=== PATIENT | male | born 1955 | race Caucasian/White ===

== ENCOUNTER 2018-01-23 05:23 | Inpatient (IN) | payer MEDICAID ==
[~2018-01-23] VITALS: Ht 185.4 cm; Wt 70.1 kg
[2018-01-23] VITALS (14 sets, daily range): BP systolic 105–164; BP diastolic 45–92
[~2018-01-23 05:23] MED LIST: CLON-527 PO; DOCU-28 PO; OXYC-658 PO; PANT40SU2 PO; PROP10TA10 PO; SPIR25TA3 PO; SUCR1TAB PO
[2018-01-23] MEDS ORDERED: normal saline 1000ML IV soln IVB ONE (05:40)
[2018-01-23] MEDS ORDERED: LORazepam 2 mg/ml vial IV ONE (05:40)
[2018-01-23] MEDS ORDERED: propofol 1000mg/100ml bottle 100 ML IV ONE ×2 (05:43→05:45)
[2018-01-23] MEDS ORDERED: rocuronium 10mg/ml inj IV ONE (05:45)
[2018-01-23] MEDS ORDERED: etomidate 2mg/ml inj. IV ONE (05:45)
[2018-01-23] MEDS ORDERED: MIDAZolam 5mg/ml 2ml vial IV ONE (05:45)
[2018-01-23] MEDS ORDERED: midazolam 2 mg/2 ml injection ONE (05:49)
[2018-01-23 05:53] LABS: BASOPHILS # (AUTO) 0.1 X10'3 (0-0.2); BASOPHILS % (AUTO) 0.5 % (0-1); EOSINOPHILS # (AUTO) 0.3 X10'3 (0-0.9); EOSINOPHILS % (AUTO) 2.2 % (0-6); HEMATOCRIT 33.6 % (42.0-52.0); HEMOGLOBIN 11.3 g/dl (14.0-17.9); LYMPHOCYTES # (AUTO) 2.9 X10'3 (1.1-4.8); LYMPHOCYTES % (AUTO) 25.5 % (21-51); MEAN CORPUSCULAR HEMOGLOBIN 30.2 PG (27.0-31.0); MEAN CORPUSCULAR HGB CONC 33.7 % (33.0-36.5); MEAN CORPUSCULAR VOLUME 89.5 FL (78-98); MEAN PLATELET VOLUME 8.4 FL (7.4-10.4); MONOCYTES # (AUTO) 0.7 X10'3 (0-0.9); MONOCYTES % (AUTO) 6.1 % (2-12); NEUTROPHILS # (AUTO) 7.5 X10'3 (1.8-7.7); NEUTROPHILS % (AUTO) 65.7 % (42-75); PLATELET COUNT 192 X10'3 (140-440); RED BLOOD COUNT 3.75 X10'6 (4.70-6.10); RED CELL DISTRIBUTION WIDTH 16.6 % (11.5-14.5); WHITE BLOOD COUNT 11.4 X10'3 (4.5-11.0)
[2018-01-23 06:06] LABS: ABG BASE EXCESS -5.5 mmol/L (-2.0-3.0); ABG HCO3 19.4 mmol/L (22.0-26.0); ABG OXYGEN SATURATION 99.2 % (95-98); ABG PCO2 (T) 33.2 mmHg (35.0-48.0); ABG PH (T) 7.377 (7.350-7.450); ABG PO2 (T) 220.5 mmHg (83-108); FCOHb 1.3 % (0.5-1.5); FMetHb 0.3 % (0.3-1.12); FO2Hb 97.6 % (94-100); PATIENT TEMPERATURE 35.5; PEEP 5 cm H2O; RESPIRATORY RATE 12 b/min; RESPIRATORY RATE (OBSERVED) 12 b/min; TIDAL VOLUME 500 mL; TOTAL HEMOGLOBIN 11.5 G/dl (14.0-18.0)
[2018-01-23 06:11] LABS: CLARITY,URINE CLEAR (Clear); COLOR,URINE YELLOW (Yellow); GLUCOSE, URINE NEGATIVE (Neg); KETONES,URINE TRACE mg/dl (Neg); LEUKOCYTE ESTERASE ,URINE NEGATIVE (Neg); NITRITES, URINE NEGATIVE (Neg); OCCULT BLOOD,URINE NEGATIVE (Neg); PH,URINE 7.5 (4.8-8.0); PROTEIN,URINE NEGATIVE (Neg)
[2018-01-23 06:13] LABS: ALANINE AMINOTRANSFERASE 121 U/L (12-78); ALBUMIN 2.8 G/DL (3.4-5.0); ALBUMIN/GLOBULIN RATIO 0.5 (1.1-1.5); ALKALINE PHOSPHATASE 198 IU/L (46-116); ANION GAP 20 (8-16); ASPARTATE AMINO TRANSFERASE 136 U/L (10-37); BILIRUBIN,TOTAL 1.6 MG/DL (0.1-1.0); BLOOD UREA NITROGEN 20 MG/DL (7-18); BUN/CREATININE RATIO 19.8 (5.4-32.0); CHLORIDE 108 MMOL/L (99-107); CREATININE 1.01 MG/DL (0.60-1.10); POTASSIUM 5.1 MMOL/L (3.5-5.1); SODIUM 143 MMOL/L (135-145); TOTAL CARBON DIOXIDE 15.4 MMOL/L (24-32); TOTAL PROTEIN 8.3 G/DL (6.4-8.2); eGFR 74 ML/MIN
[2018-01-23 06:14] LABS: GLUCOSE 145 MG/DL (70-104); INR 1.2 INR; PARTIAL THROMBOPLASTIN TIME 29 SECONDS (22-32); PROTHROMBIN TIME 12.6 SECONDS (9.0-12.0)
[2018-01-23 06:17] LABS: URINE AMPHETAMINE SCREEN POSITIVE (Neg); URINE BARBITUATE SCREEN NEGATIVE (Neg); URINE BENZODIAZEPINES SCREEN NEGATIVE (Neg); URINE CANNABINOID SCREEN POSITIVE (Neg); URINE COCAINE SCREEN NEGATIVE (Neg); URINE METHADONE SCREEN NEGATIVE (Neg); URINE OPIATE SCREEN POSITIVE (Neg); URINE PHENCYCLIDINE SCREEN NEGATIVE (Neg)
[2018-01-23 06:18] LABS: OSMOLALITY 306 MOSM/K (280-300)
[2018-01-23 06:20] LABS: UA COLLECTION TYPE STRAIGHT CATH
[2018-01-23 06:25] LABS: LACTIC SEPSIS 9.1 MMOL/L (0.4-2.0)
[2018-01-23 06:26] LABS: CKMB RELATIVE INDEX 1.9 RATIO (0-2.5); CREATINE KINASE 198 U/L (39-308); ETHANOL < 0.010 GM/DL (0.0-0.010); MAGNESIUM 1.9 MG/DL (1.5-2.4); PHOSPHORUS 2.8 MG/DL (2.3-4.5)
[2018-01-23 06:30] LABS: ACETAMINOPHEN < 2.0 UG/ML (10-30)
[2018-01-23] MEDS ORDERED: ZOLP5TAB8 (07:00)
[2018-01-23] MEDS: pantoprazole 40 MG vial IV SCH (08:00)
[2018-01-23] MEDS ORDERED: albuterol 2.5 MG/3 ML nebule NEB PRN (08:20)
[2018-01-23] MEDS ORDERED: metoclopramide 5 mg/ml inj IV PRN (08:20)
[2018-01-23] MEDS ORDERED: lactulose 20gm/30ml cup RC ONE (08:40)
[2018-01-23] MEDS ORDERED: fentaNYL in normal saline/PF 1,000mcg/100ml bag IV PRN (09:30)
[2018-01-23] MEDS: [UNRECOGNIZED DRUG - OTHER] IV PRN (10:55)
[2018-01-23] MEDS: midazolam 100mg in NS 100ml 100 ML IV PRN ×2 (10:56→21:59)
[2018-01-23] MEDS: ipratropium/albuterol 3ml nebule NEB SCH ×4 (11:44→23:34)
[2018-01-23] MEDS ORDERED: lactulose 20gm/30ml cup NG ONE (11:52)
[2018-01-23] MEDS: lactulose 20gm/30ml cup NG SCH ×2 (13:46→19:53)
[2018-01-23] MEDS ORDERED: lactulose 20gm/30ml cup NG SCH (14:00)
[2018-01-23] MEDS ORDERED: pantoprazole 40 MG vial IV ONE (18:50)
[2018-01-24] VITALS (24 sets, daily range): BP systolic 112–173; BP diastolic 50–80
[2018-01-24] MEDS: normal saline 1000ml 1,000 ML IV SCH ×3 (01:05→22:43)
[2018-01-24] MEDS: lactulose 20gm/30ml cup NG SCH ×4 (01:26→20:25)
[2018-01-24] MEDS: ipratropium/albuterol 3ml nebule NEB SCH ×6 (03:00→23:15)
[2018-01-24 04:55] LABS: ABG BASE EXCESS -1.7 mmol/L (-2.0-3.0); ABG OXYGEN SATURATION 97.9 % (95-98); ABG PCO2 (T) 29.5 mmHg (35.0-48.0); ABG PH (T) 7.471 (7.350-7.450); ABG PO2 (T) 109.4 mmHg (83-108); FCOHb 0.3 % (0.5-1.5); FMetHb 0.3 % (0.3-1.12); FO2Hb 97.3 % (94-100); MINUTE VOLUME 12 L/min; PATIENT TEMPERATURE 37.4; PEEP 5 cm H2O; RESPIRATORY RATE 20 b/min; RESPIRATORY RATE (OBSERVED) 22 b/min; TIDAL VOLUME 500 mL; TOTAL HEMOGLOBIN 10.9 G/dl (14.0-18.0)
[2018-01-24 07:09] LABS: INR 1.3 INR; PROTHROMBIN TIME 13.3 SECONDS (9.0-12.0)
[2018-01-24 07:16] LABS: ALANINE AMINOTRANSFERASE 95 U/L (12-78); ALBUMIN 2.3 G/DL (3.4-5.0); ALBUMIN/GLOBULIN RATIO 0.5 (1.1-1.5); ALKALINE PHOSPHATASE 164 IU/L (46-116); ANION GAP 12 (8-16); ASPARTATE AMINO TRANSFERASE 89 U/L (10-37); BILIRUBIN,TOTAL 1.9 MG/DL (0.1-1.0); BLOOD UREA NITROGEN 30 MG/DL (7-18); CALCIUM 8.1 MG/DL (8.5-10.1); CHLORIDE 111 MMOL/L (99-107); CREATININE 0.91 MG/DL (0.60-1.10); POTASSIUM 3.8 MMOL/L (3.5-5.1); SODIUM 145 MMOL/L (135-145); TOTAL CARBON DIOXIDE 22.1 MMOL/L (24-32); eGFR 84 ML/MIN
[2018-01-24 07:18] LABS: GLUCOSE 161 MG/DL (70-104)
[2018-01-24] MEDS: pantoprazole 40 MG vial IV SCH (08:13)
[2018-01-24 09:50] LABS: BASOPHILS % (AUTO) 0.1 % (0-1); EOSINOPHILS # (AUTO) 0.2 X10'3 (0-0.9); EOSINOPHILS % (AUTO) 1.3 % (0-6); HEMATOCRIT 30.1 % (42.0-52.0); HEMOGLOBIN 10.1 g/dl (14.0-17.9); LYMPHOCYTES # (AUTO) 0.9 X10'3 (1.1-4.8); LYMPHOCYTES % (AUTO) 5.2 % (21-51); MEAN CORPUSCULAR HEMOGLOBIN 29.9 PG (27.0-31.0); MEAN CORPUSCULAR HGB CONC 33.5 % (33.0-36.5); MEAN CORPUSCULAR VOLUME 89.4 FL (78-98); MEAN PLATELET VOLUME 8.7 FL (7.4-10.4); MONOCYTES % (AUTO) 5.9 % (2-12); NEUTROPHILS # (AUTO) 14.5 X10'3 (1.8-7.7); NEUTROPHILS % (AUTO) 87.5 % (42-75); RED BLOOD COUNT 3.37 X10'6 (4.70-6.10); RED CELL DISTRIBUTION WIDTH 17.4 % (11.5-14.5); WHITE BLOOD COUNT 16.6 X10'3 (4.5-11.0)
[2018-01-24 09:52] LABS: PLATELET COUNT 106 X10'3 (140-440)
[2018-01-24] MEDS: sucralfate 1 gm tablet PO SCH ×3 (13:00→20:26)
[2018-01-24] MEDS: mineral oil/petrolatum ophthal oint EACHEYE SCH ×2 (14:00→20:25)
[2018-01-24] MEDS: docusate sod 100mg capsule PO SCH (20:00)
[2018-01-24] MEDS: [UNRECOGNIZED DRUG - OTHER] IV PRN (20:05)
[2018-01-24] MEDS: propranolol 10mg tablet PO SCH (20:26)
[2018-01-24] MEDS: spironolactone 25 MG tablet PO SCH (20:26)
[2018-01-24] MEDS ORDERED: normal saline 250ml IV soln 250 ML IV ONE (21:55)
[2018-01-24] MEDS: midazolam 100mg in NS 100ml 100 ML IV PRN (23:05)
[2018-01-25] VITALS (23 sets, daily range): BP systolic 125–170; BP diastolic 52–104
[2018-01-25] MEDS: mineral oil/petrolatum ophthal oint EACHEYE SCH ×4 (03:01→20:32)
[2018-01-25] MEDS: lactulose 20gm/30ml cup NG SCH ×2 (03:05→08:13)
[2018-01-25] MEDS: normal saline 1000ml 1,000 ML IV SCH ×3 (03:07→22:18)
[2018-01-25] MEDS: ipratropium/albuterol 3ml nebule NEB SCH ×6 (03:30→22:59)
[2018-01-25 04:40] LABS: ABG BASE EXCESS -1.8 mmol/L (-2.0-3.0); ABG HCO3 21.4 mmol/L (22.0-26.0); ABG OXYGEN SATURATION 96.9 % (95-98); ABG PCO2 (T) 30.3 mmHg (35.0-48.0); ABG PH (T) 7.465 (7.350-7.450); FMetHb 0.3 % (0.3-1.12); FO2Hb 96.6 % (94-100); MINUTE VOLUME 8 L/min; PATIENT TEMPERATURE 36.8; PEEP 5 cm H2O; RESPIRATORY RATE (OBSERVED) 10 b/min; TOTAL HEMOGLOBIN 9.4 G/dl (14.0-18.0)
[2018-01-25 05:14] LABS: BASOPHILS % (AUTO) 0.1 % (0-1); EOSINOPHILS # (AUTO) 0.2 X10'3 (0-0.9); EOSINOPHILS % (AUTO) 1.8 % (0-6); HEMATOCRIT 26.4 % (42.0-52.0); HEMOGLOBIN 8.8 g/dl (14.0-17.9); LYMPHOCYTES # (AUTO) 1.1 X10'3 (1.1-4.8); MEAN CORPUSCULAR HEMOGLOBIN 30.1 PG (27.0-31.0); MEAN CORPUSCULAR HGB CONC 33.4 % (33.0-36.5); MEAN PLATELET VOLUME 9.2 FL (7.4-10.4); MONOCYTES # (AUTO) 0.8 X10'3 (0-0.9); MONOCYTES % (AUTO) 6.3 % (2-12); NEUTROPHILS % (AUTO) 82.8 % (42-75); PLATELET COUNT 79 X10'3 (140-440); RED BLOOD COUNT 2.94 X10'6 (4.70-6.10); RED CELL DISTRIBUTION WIDTH 17.6 % (11.5-14.5)
[2018-01-25 05:34] LABS: INR 1.3 INR; PROTHROMBIN TIME 13.4 SECONDS (9.0-12.0)
[2018-01-25 06:04] LABS: ALANINE AMINOTRANSFERASE 78 U/L (12-78); ALBUMIN 2.2 G/DL (3.4-5.0); ALBUMIN/GLOBULIN RATIO 0.5 (1.1-1.5); ALKALINE PHOSPHATASE 138 IU/L (46-116); ANION GAP 8 (8-16); ASPARTATE AMINO TRANSFERASE 60 U/L (10-37); BILIRUBIN,TOTAL 1.7 MG/DL (0.1-1.0); BLOOD UREA NITROGEN 36 MG/DL (7-18); BUN/CREATININE RATIO 41.4 (5.4-32.0); CALCIUM 8.2 MG/DL (8.5-10.1); CHLORIDE 116 MMOL/L (99-107); CREATININE 0.87 MG/DL (0.60-1.10); GLUCOSE 130 MG/DL (70-104); POTASSIUM 3.5 MMOL/L (3.5-5.1); SODIUM 147 MMOL/L (135-145); TOTAL CARBON DIOXIDE 23.3 MMOL/L (24-32); TOTAL PROTEIN 6.6 G/DL (6.4-8.2); eGFR 88 ML/MIN
[2018-01-25] MEDS: docusate sod 100mg capsule PO SCH ×2 (08:00→20:00)
[2018-01-25] MEDS: pantoprazole 40 MG vial IV SCH (08:07)
[2018-01-25] MEDS: propranolol 10mg tablet PO SCH ×2 (08:12→20:32)
[2018-01-25] MEDS: sucralfate 1 gm tablet PO SCH ×4 (08:12→20:32)
[2018-01-25] MEDS: spironolactone 25 MG tablet PO SCH ×2 (08:12→20:32)
[2018-01-25] MEDS: dexmedetomidin/NS 400mcg/100ml 100 ML IV SCH (10:29)
[2018-01-25 11:30] LABS: % IRON SATURATION 31 % (11-46); IRON 89 UG/DL (53-167); TOTAL IRON BINDING CAPACITY 288 UG/DL (259-388)
[2018-01-25 11:36] LABS: FERRITIN 50 NG/ML (26-388)
[2018-01-25 12:11] LABS: OCCULT BLOOD STOOL NEGATIVE (Neg)
[2018-01-25] MEDS: midazolam 100mg in NS 100ml 100 ML IV PRN (21:09)
[2018-01-25] MEDS ORDERED: dexmedetomidine 200mcg/2ml inj. IV ONE (22:56)
[2018-01-26] VITALS (23 sets, daily range): BP systolic 113–154; BP diastolic 53–78
[2018-01-26] MEDS: mineral oil/petrolatum ophthal oint EACHEYE SCH ×4 (02:42→20:00)
[2018-01-26] MEDS ORDERED: dexmedetomidine 200mcg/2ml inj. IV ONE (02:54)
[2018-01-26] MEDS: ipratropium/albuterol 3ml nebule NEB SCH ×4 (03:21→14:25)
[2018-01-26 03:41] LABS: ABG BASE EXCESS -3.9 mmol/L (-2.0-3.0); ABG HCO3 19.7 mmol/L (22.0-26.0); ABG OXYGEN SATURATION 96.8 % (95-98); ABG PCO2 (T) 29.1 mmHg (35.0-48.0); ABG PH (T) 7.445 (7.350-7.450); ABG PO2 (T) 82.6 mmHg (83-108); ALLEN'S TEST Positive; FCOHb 0.3 % (0.5-1.5); FMetHb 0.1 % (0.3-1.12); FO2Hb 96.4 % (94-100); MINUTE VOLUME 7 L/min; PATIENT TEMPERATURE 35.9; PEEP 5 cm H2O; RESPIRATORY RATE (OBSERVED) 10 b/min; TOTAL HEMOGLOBIN 9.2 G/dl (14.0-18.0)
[2018-01-26 04:37] LABS: BASOPHILS % (AUTO) 0.1 % (0-1); EOSINOPHILS # (AUTO) 0.1 X10'3 (0-0.9); EOSINOPHILS % (AUTO) 1.4 % (0-6); HEMATOCRIT 24.7 % (42.0-52.0); HEMOGLOBIN 8.3 g/dl (14.0-17.9); LYMPHOCYTES # (AUTO) 0.8 X10'3 (1.1-4.8); MEAN CORPUSCULAR HEMOGLOBIN 30.1 PG (27.0-31.0); MEAN CORPUSCULAR HGB CONC 33.5 % (33.0-36.5); MEAN CORPUSCULAR VOLUME 89.9 FL (78-98); MONOCYTES # (AUTO) 0.4 X10'3 (0-0.9); MONOCYTES % (AUTO) 5.2 % (2-12); NEUTROPHILS # (AUTO) 5.8 X10'3 (1.8-7.7); NEUTROPHILS % (AUTO) 82.3 % (42-75); PLATELET COUNT 64 X10'3 (140-440); RED BLOOD COUNT 2.75 X10'6 (4.70-6.10); RED CELL DISTRIBUTION WIDTH 17.3 % (11.5-14.5); WHITE BLOOD COUNT 7.1 X10'3 (4.5-11.0)
[2018-01-26 04:47] LABS: INR 1.3 INR; PROTHROMBIN TIME 13.3 SECONDS (9.0-12.0)
[2018-01-26 04:51] LABS: ALANINE AMINOTRANSFERASE 64 U/L (12-78); ALBUMIN 1.9 G/DL (3.4-5.0); ALBUMIN/GLOBULIN RATIO 0.5 (1.1-1.5); ALKALINE PHOSPHATASE 115 IU/L (46-116); ANION GAP 6 (8-16); ASPARTATE AMINO TRANSFERASE 46 U/L (10-37); BILIRUBIN,TOTAL 1.2 MG/DL (0.1-1.0); BLOOD UREA NITROGEN 40 MG/DL (7-18); BUN/CREATININE RATIO 51.9 (5.4-32.0); CALCIUM 8.2 MG/DL (8.5-10.1); CHLORIDE 118 MMOL/L (99-107); CREATININE 0.77 MG/DL (0.60-1.10); POTASSIUM 3.6 MMOL/L (3.5-5.1); SODIUM 147 MMOL/L (135-145); TOTAL CARBON DIOXIDE 23.1 MMOL/L (24-32); eGFR > 90 ML/MIN
[2018-01-26 05:00] LABS: GLUCOSE 127 MG/DL (70-104)
[2018-01-26] MEDS: propranolol 10mg tablet PO SCH ×2 (07:38→20:41)
[2018-01-26] MEDS: docusate sod 100mg capsule PO SCH ×2 (07:38→20:00)
[2018-01-26] MEDS: lactulose 20gm/30ml cup NG SCH (07:39)
[2018-01-26] MEDS: sucralfate 1 gm tablet PO SCH ×4 (07:40→20:41)
[2018-01-26] MEDS: spironolactone 25 MG tablet PO SCH ×2 (07:40→20:41)
[2018-01-26] MEDS: pantoprazole 40 MG vial IV SCH (07:40)
[2018-01-26] MEDS: normal saline 1000ml 1,000 ML IV SCH (13:53)
[2018-01-26] MEDS: dexmedetomidin/NS 400mcg/100ml 100 ML IV SCH (15:58)
[2018-01-26] MEDS ORDERED: LORazepam 2 mg/ml vial IV PRN (20:05)
[2018-01-26] MEDS ORDERED: LORazepam 2 mg/ml vial IV ONE (20:05)
[2018-01-27] VITALS (20 sets, daily range): BP systolic 101–165; BP diastolic 42–70
[2018-01-27] MEDS: mineral oil/petrolatum ophthal oint EACHEYE SCH ×3 (02:00→06:31)
[2018-01-27] MEDS: normal saline 1000ml 1,000 ML IV SCH ×2 (02:29→11:29)
[2018-01-27 04:06] LABS: INR 1.3 INR; PROTHROMBIN TIME 13.4 SECONDS (9.0-12.0)
[2018-01-27 04:11] LABS: BASOPHILS % (AUTO) 0.1 % (0-1); EOSINOPHILS % (AUTO) 0 % (0-6); HEMATOCRIT 23.2 % (42.0-52.0); HEMOGLOBIN 7.9 g/dl (14.0-17.9); LYMPHOCYTES % (AUTO) 14.1 % (21-51); MEAN CORPUSCULAR HEMOGLOBIN 30.3 PG (27.0-31.0); MEAN CORPUSCULAR HGB CONC 34.1 % (33.0-36.5); MEAN CORPUSCULAR VOLUME 88.9 FL (78-98); MEAN PLATELET VOLUME 8.8 FL (7.4-10.4); MONOCYTES # (AUTO) 0.4 X10'3 (0-0.9); MONOCYTES % (AUTO) 6.1 % (2-12); NEUTROPHILS # (AUTO) 5.6 X10'3 (1.8-7.7); NEUTROPHILS % (AUTO) 79.7 % (42-75); PLATELET COUNT 65 X10'3 (140-440); RED CELL DISTRIBUTION WIDTH 17.2 % (11.5-14.5)
[2018-01-27 04:16] LABS: ALANINE AMINOTRANSFERASE 57 U/L (12-78); ALBUMIN 1.8 G/DL (3.4-5.0); ALBUMIN/GLOBULIN RATIO 0.5 (1.1-1.5); ALKALINE PHOSPHATASE 112 IU/L (46-116); ANION GAP 9 (8-16); ASPARTATE AMINO TRANSFERASE 55 U/L (10-37); BILIRUBIN,TOTAL 1.3 MG/DL (0.1-1.0); BLOOD UREA NITROGEN 28 MG/DL (7-18); BUN/CREATININE RATIO 43.1 (5.4-32.0); CALCIUM 7.7 MG/DL (8.5-10.1); CHLORIDE 113 MMOL/L (99-107); CREATININE 0.65 MG/DL (0.60-1.10); GLUCOSE 88 MG/DL (70-104); POTASSIUM 3.2 MMOL/L (3.5-5.1); SODIUM 142 MMOL/L (135-145); TOTAL CARBON DIOXIDE 20.4 MMOL/L (24-32); TOTAL PROTEIN 5.8 G/DL (6.4-8.2); eGFR > 90 ML/MIN
[2018-01-27] MEDS: docusate sod 100mg capsule PO SCH ×2 (06:31→19:24)
[2018-01-27] MEDS: LORazepam 2 mg/ml vial IV PRN ×3 (07:08→20:43)
[2018-01-27] MEDS: lactulose 20gm/30ml cup NG SCH (07:57)
[2018-01-27] MEDS: sucralfate 1 gm tablet PO SCH ×4 (07:58→19:24)
[2018-01-27] MEDS: propranolol 10mg tablet PO SCH ×2 (07:58→19:25)
[2018-01-27] MEDS: spironolactone 25 MG tablet PO SCH ×2 (07:58→19:25)
[2018-01-27] MEDS: pantoprazole 40mg Tablet.DR PO SCH (07:58)
[2018-01-27] MEDS ORDERED: potassium Cl 20 mEq SR tablet PO PRN (09:55)
[2018-01-27] MEDS: K, MAG and/or Phos replacement - Verify level? MC SCH (10:00)
[2018-01-27] MEDS: potassium Cl 20 mEq SR tablet PO PRN ×3 (11:28→22:46)
[2018-01-28 03:00] VITALS: BP 147/65
[2018-01-28 06:56] VITALS: BP 120/63
[2018-01-28 07:15] LABS: BASOPHILS % (AUTO) 0 % (0-1); EOSINOPHILS # (AUTO) 0.2 X10'3 (0-0.9); EOSINOPHILS % (AUTO) 2.5 % (0-6); HEMATOCRIT 26.3 % (42.0-52.0); HEMOGLOBIN 8.9 g/dl (14.0-17.9); LYMPHOCYTES # (AUTO) 1.1 X10'3 (1.1-4.8); LYMPHOCYTES % (AUTO) 14.9 % (21-51); MEAN CORPUSCULAR HEMOGLOBIN 30.1 PG (27.0-31.0); MEAN CORPUSCULAR HGB CONC 34.1 % (33.0-36.5); MEAN CORPUSCULAR VOLUME 88.4 FL (78-98); MEAN PLATELET VOLUME 8.4 FL (7.4-10.4); MONOCYTES # (AUTO) 0.7 X10'3 (0-0.9); MONOCYTES % (AUTO) 8.7 % (2-12); NEUTROPHILS # (AUTO) 5.7 X10'3 (1.8-7.7); NEUTROPHILS % (AUTO) 73.9 % (42-75); PLATELET COUNT 102 X10'3 (140-440); RED BLOOD COUNT 2.98 X10'6 (4.70-6.10); RED CELL DISTRIBUTION WIDTH 17.1 % (11.5-14.5); WHITE BLOOD COUNT 7.7 X10'3 (4.5-11.0)
[2018-01-28 07:24] LABS: INR 1.3 INR; PROTHROMBIN TIME 13.1 SECONDS (9.0-12.0)
[2018-01-28 07:28] LABS: ALANINE AMINOTRANSFERASE 63 U/L (12-78); ALBUMIN/GLOBULIN RATIO 0.5 (1.1-1.5); ALKALINE PHOSPHATASE 120 IU/L (46-116); ANION GAP 8 (8-16); ASPARTATE AMINO TRANSFERASE 57 U/L (10-37); BILIRUBIN,TOTAL 1.4 MG/DL (0.1-1.0); BLOOD UREA NITROGEN 25 MG/DL (7-18); BUN/CREATININE RATIO 36.8 (5.4-32.0); CHLORIDE 112 MMOL/L (99-107); CREATININE 0.68 MG/DL (0.60-1.10); GLUCOSE 106 MG/DL (70-104); POTASSIUM 3.6 MMOL/L (3.5-5.1); SODIUM 140 MMOL/L (135-145); TOTAL CARBON DIOXIDE 20.2 MMOL/L (24-32); TOTAL PROTEIN 6.4 G/DL (6.4-8.2); eGFR > 90 ML/MIN
[2018-01-28] MEDS: K, MAG and/or Phos replacement - Verify level? MC SCH (08:00)
[2018-01-28] MEDS: lactulose 20gm/30ml cup NG SCH (08:02)
[2018-01-28] MEDS: sucralfate 1 gm tablet PO SCH ×4 (08:03→20:26)
[2018-01-28] MEDS: pantoprazole 40mg Tablet.DR PO SCH (08:03)
[2018-01-28] MEDS: docusate sod 100mg capsule PO SCH ×2 (08:04→20:26)
[2018-01-28] MEDS: propranolol 10mg tablet PO SCH ×2 (08:04→20:25)
[2018-01-28] MEDS: spironolactone 25 MG tablet PO SCH ×2 (08:04→20:26)
[2018-01-28 11:00] VITALS: BP 147/53
[2018-01-28] MEDS: LORazepam 2 mg/ml vial IV PRN (13:20)
[2018-01-28 15:00] VITALS: BP 155/58
[2018-01-28 18:00] VITALS: BP 143/54
[2018-01-28 22:00] VITALS: BP 110/53
[2018-01-29] MEDS: LORazepam 2 mg/ml vial IV PRN ×2 (01:40→10:23)
[2018-01-29 02:00] VITALS: BP 133/52
[2018-01-29 06:00] VITALS: BP 148/55
[2018-01-29 06:02] LABS: BASOPHILS % (AUTO) 0.1 % (0-1); EOSINOPHILS % (AUTO) 0 % (0-6); HEMATOCRIT 24.9 % (42.0-52.0); HEMOGLOBIN 8.6 g/dl (14.0-17.9); LYMPHOCYTES # (AUTO) 1.1 X10'3 (1.1-4.8); LYMPHOCYTES % (AUTO) 14.1 % (21-51); MEAN CORPUSCULAR HEMOGLOBIN 30.5 PG (27.0-31.0); MEAN CORPUSCULAR HGB CONC 34.5 % (33.0-36.5); MEAN CORPUSCULAR VOLUME 88.3 FL (78-98); MEAN PLATELET VOLUME 8.5 FL (7.4-10.4); MONOCYTES # (AUTO) 0.6 X10'3 (0-0.9); MONOCYTES % (AUTO) 7.1 % (2-12); NEUTROPHILS # (AUTO) 6.1 X10'3 (1.8-7.7); NEUTROPHILS % (AUTO) 78.7 % (42-75); PLATELET COUNT 93 X10'3 (140-440); RED BLOOD COUNT 2.81 X10'6 (4.70-6.10); RED CELL DISTRIBUTION WIDTH 16.9 % (11.5-14.5); WHITE BLOOD COUNT 7.8 X10'3 (4.5-11.0)
[2018-01-29 06:12] LABS: INR 1.3 INR; PROTHROMBIN TIME 13.5 SECONDS (9.0-12.0)
[2018-01-29 06:33] LABS: ALANINE AMINOTRANSFERASE 57 U/L (12-78); ALBUMIN 1.9 G/DL (3.4-5.0); ALBUMIN/GLOBULIN RATIO 0.5 (1.1-1.5); ALKALINE PHOSPHATASE 114 IU/L (46-116); ANION GAP 7 (8-16); ASPARTATE AMINO TRANSFERASE 52 U/L (10-37); BILIRUBIN,TOTAL 1.6 MG/DL (0.1-1.0); BLOOD UREA NITROGEN 22 MG/DL (7-18); BUN/CREATININE RATIO 32.8 (5.4-32.0); CALCIUM 7.7 MG/DL (8.5-10.1); CHLORIDE 110 MMOL/L (99-107); CREATININE 0.67 MG/DL (0.60-1.10); GLUCOSE 106 MG/DL (70-104); POTASSIUM 3.6 MMOL/L (3.5-5.1); SODIUM 139 MMOL/L (135-145); TOTAL CARBON DIOXIDE 21.6 MMOL/L (24-32); eGFR > 90 ML/MIN
[2018-01-29] MEDS: spironolactone 25 MG tablet PO SCH ×2 (07:51→20:57)
[2018-01-29] MEDS: pantoprazole 40mg Tablet.DR PO SCH (07:51)
[2018-01-29] MEDS: lactulose 20gm/30ml cup NG SCH (07:51)
[2018-01-29] MEDS: docusate sod 100mg capsule PO SCH ×2 (07:52→20:58)
[2018-01-29] MEDS: propranolol 10mg tablet PO SCH ×2 (07:52→20:58)
[2018-01-29] MEDS: sucralfate 1 gm tablet PO SCH ×4 (07:52→20:58)
[2018-01-29] MEDS: K, MAG and/or Phos replacement - Verify level? MC SCH (07:54)
[2018-01-29 11:00] VITALS: BP 107/53
[2018-01-29 15:00] VITALS: BP 163/53
[2018-01-29 18:00] VITALS: BP 154/58
[2018-01-29 22:00] VITALS: BP 144/65
[2018-01-30 02:00] VITALS: BP 126/45
[2018-01-30 05:53] LABS: BASOPHILS % (AUTO) 0.3 % (0-1); EOSINOPHILS # (AUTO) 0.2 X10'3 (0-0.9); EOSINOPHILS % (AUTO) 3.6 % (0-6); HEMOGLOBIN 8.9 g/dl (14.0-17.9); LYMPHOCYTES # (AUTO) 1.3 X10'3 (1.1-4.8); LYMPHOCYTES % (AUTO) 19.6 % (21-51); MEAN CORPUSCULAR HEMOGLOBIN 30.4 PG (27.0-31.0); MEAN CORPUSCULAR VOLUME 89.2 FL (78-98); MEAN PLATELET VOLUME 8.6 FL (7.4-10.4); MONOCYTES # (AUTO) 0.6 X10'3 (0-0.9); MONOCYTES % (AUTO) 8.9 % (2-12); NEUTROPHILS # (AUTO) 4.5 X10'3 (1.8-7.7); NEUTROPHILS % (AUTO) 67.6 % (42-75); PLATELET COUNT 82 X10'3 (140-440); RED BLOOD COUNT 2.91 X10'6 (4.70-6.10); RED CELL DISTRIBUTION WIDTH 16.9 % (11.5-14.5); WHITE BLOOD COUNT 6.7 X10'3 (4.5-11.0)
[2018-01-30 06:18] LABS: INR 1.3 INR; PROTHROMBIN TIME 13.4 SECONDS (9.0-12.0)
[2018-01-30 06:39] LABS: ALBUMIN 1.9 G/DL (3.4-5.0); ANION GAP 8 (8-16); BILIRUBIN,TOTAL 1.4 MG/DL (0.1-1.0); BLOOD UREA NITROGEN 21 MG/DL (7-18); BUN/CREATININE RATIO 37.5 (5.4-32.0); CHLORIDE 108 MMOL/L (99-107); CREATININE 0.56 MG/DL (0.60-1.10); GLUCOSE 89 MG/DL (70-104); POTASSIUM 3.5 MMOL/L (3.5-5.1); SODIUM 138 MMOL/L (135-145); TOTAL CARBON DIOXIDE 22.3 MMOL/L (24-32); TOTAL PROTEIN 5.9 G/DL (6.4-8.2); eGFR > 90 ML/MIN
[2018-01-30 06:40] LABS: ALANINE AMINOTRANSFERASE 53 U/L (12-78); ALBUMIN/GLOBULIN RATIO 0.5 (1.1-1.5); ALKALINE PHOSPHATASE 114 IU/L (46-116); ASPARTATE AMINO TRANSFERASE 51 U/L (10-37)
[2018-01-30 07:00] VITALS: BP 133/50
[2018-01-30] MEDS: K, MAG and/or Phos replacement - Verify level? MC SCH (07:02)
[2018-01-30] MEDS: docusate sod 100mg capsule PO SCH ×2 (08:00→19:53)
[2018-01-30] MEDS: spironolactone 25 MG tablet PO SCH ×2 (08:33→19:52)
[2018-01-30] MEDS: propranolol 10mg tablet PO SCH ×2 (08:33→19:52)
[2018-01-30] MEDS: sucralfate 1 gm tablet PO SCH ×4 (08:33→19:52)
[2018-01-30] MEDS: pantoprazole 40mg Tablet.DR PO SCH (08:33)
[2018-01-30] MEDS: lactulose 20gm/30ml cup NG SCH (08:34)
[2018-01-30 11:00] VITALS: BP 120/53
[2018-01-30] MEDS: oxyCODONE IR 5mg (immed. release) tablet PO PRN ×2 (11:49→17:48)
[2018-01-30 15:00] VITALS: BP 128/52
[2018-01-30 18:00] VITALS: BP 113/51
[2018-01-30] MEDS: LORazepam 2 mg/ml vial IV PRN (20:09)
[2018-01-30 23:00] VITALS: BP 121/44
[2018-01-31] MEDS: LORazepam 2 mg/ml vial IV PRN ×3 (01:12→22:37)
[2018-01-31] MEDS: oxyCODONE IR 5mg (immed. release) tablet PO PRN ×4 (01:13→19:56)
[2018-01-31 03:00] VITALS: BP 127/48
[2018-01-31 07:00] VITALS: BP 115/45
[2018-01-31] MEDS: lactulose 20gm/30ml cup NG SCH (07:09)
[2018-01-31] MEDS: sucralfate 1 gm tablet PO SCH ×4 (07:09→20:00)
[2018-01-31] MEDS: pantoprazole 40mg Tablet.DR PO SCH (07:10)
[2018-01-31] MEDS: propranolol 10mg tablet PO SCH ×2 (07:10→19:54)
[2018-01-31] MEDS: spironolactone 25 MG tablet PO SCH ×2 (07:10→19:53)
[2018-01-31] MEDS: docusate sod 100mg capsule PO SCH ×2 (07:47→19:57)
[2018-01-31] MEDS: K, MAG and/or Phos replacement - Verify level? MC SCH (08:00)
[2018-01-31 09:50] LABS: BASOPHILS % (AUTO) 0.1 % (0-1); EOSINOPHILS # (AUTO) 0.2 X10'3 (0-0.9); EOSINOPHILS % (AUTO) 3.1 % (0-6); HEMATOCRIT 27.3 % (42.0-52.0); HEMOGLOBIN 9.1 g/dl (14.0-17.9); LYMPHOCYTES # (AUTO) 1.2 X10'3 (1.1-4.8); LYMPHOCYTES % (AUTO) 19.1 % (21-51); MEAN CORPUSCULAR HEMOGLOBIN 30.2 PG (27.0-31.0); MEAN CORPUSCULAR HGB CONC 33.3 % (33.0-36.5); MEAN CORPUSCULAR VOLUME 90.8 FL (78-98); MEAN PLATELET VOLUME 8.4 FL (7.4-10.4); MONOCYTES # (AUTO) 0.6 X10'3 (0-0.9); MONOCYTES % (AUTO) 9.7 % (2-12); NEUTROPHILS # (AUTO) 4.3 X10'3 (1.8-7.7); PLATELET COUNT 87 X10'3 (140-440); RED CELL DISTRIBUTION WIDTH 17.6 % (11.5-14.5); WHITE BLOOD COUNT 6.3 X10'3 (4.5-11.0)
[2018-01-31 09:57] LABS: INR 1.3 INR; PROTHROMBIN TIME 13.8 SECONDS (9.0-12.0)
[2018-01-31 10:08] LABS: ALANINE AMINOTRANSFERASE 59 U/L (12-78); ALBUMIN 1.8 G/DL (3.4-5.0); ALBUMIN/GLOBULIN RATIO 0.5 (1.1-1.5); ALKALINE PHOSPHATASE 120 IU/L (46-116); ANION GAP 5 (8-16); ASPARTATE AMINO TRANSFERASE 56 U/L (10-37); BLOOD UREA NITROGEN 14 MG/DL (7-18); BUN/CREATININE RATIO 19.2 (5.4-32.0); CALCIUM 7.6 MG/DL (8.5-10.1); CHLORIDE 108 MMOL/L (99-107); CREATININE 0.73 MG/DL (0.60-1.10); GLUCOSE 128 MG/DL (70-104); POTASSIUM 3.6 MMOL/L (3.5-5.1); SODIUM 139 MMOL/L (135-145); TOTAL CARBON DIOXIDE 25.9 MMOL/L (24-32); TOTAL PROTEIN 5.8 G/DL (6.4-8.2); eGFR > 90 ML/MIN
[2018-01-31 11:00] VITALS: BP 119/41
[2018-01-31 20:00] VITALS: BP 120/52
[2018-01-31 23:13] VITALS: BP 118/40
[2018-02-01] MEDS: oxyCODONE IR 5mg (immed. release) tablet PO PRN (02:11)
[2018-02-01] MEDS ORDERED: oxyCODONE IR 5mg (immed. release) tablet PO PRN ×2 (03:00)
[2018-02-01 05:37] LABS: BASOPHILS % (AUTO) 0.4 % (0-1); EOSINOPHILS # (AUTO) 0.2 X10'3 (0-0.9); EOSINOPHILS % (AUTO) 3.6 % (0-6); HEMATOCRIT 27.3 % (42.0-52.0); HEMOGLOBIN 9.2 g/dl (14.0-17.9); LYMPHOCYTES # (AUTO) 1.1 X10'3 (1.1-4.8); LYMPHOCYTES % (AUTO) 15.9 % (21-51); MEAN CORPUSCULAR HEMOGLOBIN 30.2 PG (27.0-31.0); MEAN CORPUSCULAR HGB CONC 33.8 % (33.0-36.5); MEAN CORPUSCULAR VOLUME 89.3 FL (78-98); MEAN PLATELET VOLUME 8.9 FL (7.4-10.4); MONOCYTES # (AUTO) 0.7 X10'3 (0-0.9); MONOCYTES % (AUTO) 10.6 % (2-12); NEUTROPHILS # (AUTO) 4.6 X10'3 (1.8-7.7); NEUTROPHILS % (AUTO) 69.5 % (42-75); PLATELET COUNT 97 X10'3 (140-440); RED BLOOD COUNT 3.05 X10'6 (4.70-6.10); RED CELL DISTRIBUTION WIDTH 17.1 % (11.5-14.5); WHITE BLOOD COUNT 6.7 X10'3 (4.5-11.0)
[2018-02-01 05:44] LABS: INR 1.3 INR
[2018-02-01 06:05] LABS: ALANINE AMINOTRANSFERASE 60 U/L (12-78); ALBUMIN 1.8 G/DL (3.4-5.0); ALBUMIN/GLOBULIN RATIO 0.4 (1.1-1.5); ALKALINE PHOSPHATASE 126 IU/L (46-116); ANION GAP 4 (8-16); ASPARTATE AMINO TRANSFERASE 59 U/L (10-37); BILIRUBIN,TOTAL 0.8 MG/DL (0.1-1.0); BLOOD UREA NITROGEN 12 MG/DL (7-18); BUN/CREATININE RATIO 18.2 (5.4-32.0); CALCIUM 7.8 MG/DL (8.5-10.1); CHLORIDE 107 MMOL/L (99-107); CREATININE 0.66 MG/DL (0.60-1.10); GLUCOSE 97 MG/DL (70-104); POTASSIUM 3.8 MMOL/L (3.5-5.1); SODIUM 138 MMOL/L (135-145); TOTAL CARBON DIOXIDE 27.1 MMOL/L (24-32); TOTAL PROTEIN 5.9 G/DL (6.4-8.2); eGFR > 90 ML/MIN
[2018-02-01 07:00] VITALS: BP 115/43
[2018-02-01] MEDS: docusate sod 100mg capsule PO SCH (07:31)
[2018-02-01] MEDS: spironolactone 25 MG tablet PO SCH (07:39)
[2018-02-01] MEDS: propranolol 10mg tablet PO SCH (07:39)
[2018-02-01] MEDS: pantoprazole 40mg Tablet.DR PO SCH (07:39)
[2018-02-01] MEDS: sucralfate 1 gm tablet PO SCH (07:40)
[2018-02-01] MEDS: lactulose 20gm/30ml cup NG SCH (07:44)
[2018-02-01] MEDS: K, MAG and/or Phos replacement - Verify level? MC SCH (07:46)
[2018-02-01] MEDS ORDERED: OXYC15TA88 PO (09:39)
[2018-02-01] MEDS ORDERED: LACT10SO PO (09:45)
== END 2018-02-01 12:00 | disposition home health service (06) | DRG 720 ==
LOC: ER 05:25 → ED HOLD 08:16 → ICU 2S 09:12 → PCU 3S 01-27 19:11 → SUR 3N 01-31 14:58
PROVIDERS: ADMIT Internal Medicine Critical Care Medicine; ATTEND Family Medicine
PROC: 5A1945Z Respiratory Ventilation, 24-96 Consecutive Hours (ICD-10-PCS; principal; 2018-01-23)
PROC: 0BH17EZ Insertion of Endotracheal Airway into Trachea, Via Natural or Artificial Opening (ICD-10-PCS; 2018-01-23)
PROC: 0D9670Z Drainage of Stomach with Drainage Device, Via Natural or Artificial Opening (ICD-10-PCS; 2018-01-23)
DX: A41.9 Sepsis, unspecified organism (principal); J96.00 Acute respiratory failure, unspecified whether with hypoxia or hypercapnia; E43 Unspecified severe protein-calorie malnutrition; D61.818 Other pancytopenia; C78.7 Secondary malignant neoplasm of liver and intrahepatic bile duct; E87.0 Hyperosmolality and hypernatremia; E83.51 Hypocalcemia; C18.9 Malignant neoplasm of colon, unspecified; F15.10 Other stimulant abuse, uncomplicated; B18.2 Chronic viral hepatitis C; D69.59 Other secondary thrombocytopenia; F12.90 Cannabis use, unspecified, uncomplicated; F11.90 Opioid use, unspecified, uncomplicated; F17.210 Nicotine dependence, cigarettes, uncomplicated; T50.905A Adverse effect of unspecified drugs, medicaments and biological substances, initial encounter; E87.6 Hypokalemia; G89.29 Other chronic pain; I10 Essential (primary) hypertension; K72.90 Hepatic failure, unspecified without coma; K74.60 Unspecified cirrhosis of liver; Z51.5 Encounter for palliative care; Z76.5 Malingerer [conscious simulation]; Z68.20 Body mass index [BMI] 20.0-20.9, adult; Z82.49 Family history of ischemic heart disease and other diseases of the circulatory system; Z83.3 Family history of diabetes mellitus; Z88.5 Allergy status to narcotic agent; Z79.899 Other long term (current) drug therapy; Y92.89 Other specified places as the place of occurrence of the external cause
CPT/HCPCS: 36415; 36600; 70450; 71045; 80053; 80305; 80320; 80329; 81003; 82140; 82272; 82550; 82553; 82728; 82803; 82948; 83540; 83550; 83605; 83735; 83874; 83930; 84100; 84145; 84439; 84443; 84484; 85018; 85025; 85610; 85651; 85730; 87040; 87070; 92616; 93005; 94002; 94003; 94640; 94760; 96360; 97116; 97161; 97530; 99291; A6209; A6213; A6258; A7015; C1758; C9113; J2060; J2250; J2704; J3010; J7030

== ENCOUNTER 2018-02-08 12:14 | Emergency (ER) | payer MEDICAID ==
[~2018-02-08] VITALS: Ht 182.9 cm; Wt 61.0 kg
[~2018-02-08 12:14] MED LIST changes: +LACT10SO PO; -OXYC-658 PO; +OXYC15TA88 PO; -SPIR25TA3 PO; +SPIR25TA5 PO; +ZOLP5TAB8
[2018-02-08] MEDS ORDERED: ondansetron/PF 4mg/2ml inj IV ONE (12:50)
[2018-02-08] MEDS ORDERED: normal saline 1000ML IV soln IVB ONE (12:50)
[2018-02-08] MEDS ORDERED: morphine 4 MG/ML inj SYRINge IV ONE (13:15)
[2018-02-08] MEDS ORDERED: LORazepam 2 mg/ml vial IV ONE (13:15)
[2018-02-08 14:11] LABS: BASOPHILS % (AUTO) 0.5 % (0-1); EOSINOPHILS # (AUTO) 0.1 X10'3 (0-0.9); EOSINOPHILS % (AUTO) 1.6 % (0-6); HEMATOCRIT 24.4 % (42.0-52.0); HEMOGLOBIN 8.2 g/dl (14.0-17.9); LYMPHOCYTES # (AUTO) 0.6 X10'3 (1.1-4.8); LYMPHOCYTES % (AUTO) 18.1 % (21-51); MEAN CORPUSCULAR HEMOGLOBIN 30.1 PG (27.0-31.0); MEAN CORPUSCULAR HGB CONC 33.6 % (33.0-36.5); MEAN CORPUSCULAR VOLUME 89.7 FL (78-98); MEAN PLATELET VOLUME 7.9 FL (7.4-10.4); MONOCYTES # (AUTO) 0.3 X10'3 (0-0.9); MONOCYTES % (AUTO) 7.1 % (2-12); NEUTROPHILS # (AUTO) 2.6 X10'3 (1.8-7.7); NEUTROPHILS % (AUTO) 72.7 % (42-75); PLATELET COUNT 116 X10'3 (140-440); RED BLOOD COUNT 2.72 X10'6 (4.70-6.10); RED CELL DISTRIBUTION WIDTH 18.6 % (11.5-14.5); WHITE BLOOD COUNT 3.6 X10'3 (4.5-11.0)
[2018-02-08 14:23] LABS: ALANINE AMINOTRANSFERASE 73 U/L (12-78); ALBUMIN/GLOBULIN RATIO 0.5 (1.1-1.5); ALKALINE PHOSPHATASE 165 IU/L (46-116); ANION GAP 6 (8-16); ASPARTATE AMINO TRANSFERASE 87 U/L (10-37); BILIRUBIN,TOTAL 1.1 MG/DL (0.1-1.0); BLOOD UREA NITROGEN 15 MG/DL (7-18); BUN/CREATININE RATIO 19.2 (5.4-32.0); CALCIUM 7.7 MG/DL (8.5-10.1); CHLORIDE 107 MMOL/L (99-107); CREATININE 0.78 MG/DL (0.60-1.10); GLUCOSE 98 MG/DL (70-104); LIPASE 232 U/L (73-393); POTASSIUM 4.9 MMOL/L (3.5-5.1); SODIUM 140 MMOL/L (135-145); TOTAL CARBON DIOXIDE 27.2 MMOL/L (24-32); TOTAL PROTEIN 6.4 G/DL (6.4-8.2); eGFR > 90 ML/MIN
[2018-02-08] MEDS ORDERED: CLON-527 PO (14:33)
[2018-02-08 14:40] LABS: CLARITY,URINE CLOUDY (Clear); COLOR,URINE YELLOW (Yellow); GLUCOSE, URINE NEGATIVE (Neg); KETONES,URINE NEGATIVE (Neg); LEUKOCYTE ESTERASE ,URINE TRACE (Neg); NITRITES, URINE POSITIVE (Neg); OCCULT BLOOD,URINE NEGATIVE (Neg); PH,URINE 7.5 (4.8-8.0); PROTEIN,URINE NEGATIVE (Neg); UA COLLECTION TYPE VOIDED
[2018-02-08 14:48] LABS: BACTERIA,URINE 3+ /HPF (Neg); RBC,URINE 0-2 /HPF (0-2); SQUAMOUS EPITHELIAL CELL,UR FEW /LPF (FEW)
[2018-02-08 14:49] LABS: WBC,URINE 30-50 /HPF (0-4)
[2018-02-08] MEDS ORDERED: OXYC15TA88 PO (14:49)
[2018-02-08 14:56] VITALS: BP 148/70
== END 2018-02-08 15:12 | disposition home or self-care (01) ==
LOC: ER 12:15
DX: R10.84 Generalized abdominal pain (principal); I10 Essential (primary) hypertension; G89.29 Other chronic pain; F17.210 Nicotine dependence, cigarettes, uncomplicated; F12.90 Cannabis use, unspecified, uncomplicated; F11.90 Opioid use, unspecified, uncomplicated; F15.90 Other stimulant use, unspecified, uncomplicated; Z60.2 Problems related to living alone; Z88.8 Allergy status to other drugs, medicaments and biological substances; Z90.49 Acquired absence of other specified parts of digestive tract; Z79.899 Other long term (current) drug therapy
CPT/HCPCS: 36415; 80053; 81001; 83690; 85025; 87077; 87088; 87186; 96374; 96375; 99284; J2060; J2270; J2405; J7030